=== PATIENT | male | born 1990 | race Caucasian/White ===

== ENCOUNTER 2019-02-12 18:19 | Emergency (ER) | payer BC ==
[~2019-02-12] VITALS: Ht 193 cm; Wt 68.0 kg
[2019-02-12 18:20] VITALS: BP 114/76
[2019-02-12] MEDS ORDERED: TETRACAINE 0.5% OPHTH SOLUTION 4ML BOTTLE. ONE (18:30)
[2019-02-12] MEDS ORDERED: FLUORESCEIN 1MG EYE STRIP. ONE (18:30)
[2019-02-12] MEDS ORDERED: FLUORESCEIN 1MG EYE STRIP. OD ONE (18:45)
[2019-02-12] MEDS ORDERED: TETRACAINE 0.5% OPHTH SOLUTION 4ML BOTTLE. OD ONE (18:45)
[2019-02-12] MEDS ORDERED: ERYT1OIN6 OP (19:23)
--- NOTE | 2019-02-12 19:23 | PHYS DOC ---
Past History Past Medical History: No Pertinent History Past Surgical History: No Surgical History Alcohol Use: Occasionally Drug Use: None Adult General Chief Complaint Chief Complaint: EYE PROBLEMS HPI HPI 28-year-old male presents with blurry vision. The patient started trouble with his vision around noon today. He wears contacts. He took his contact out and continues to feel it has blurry vision. He feels like there is a thicker fluid covering his eye. He denies any foreign body exposure. 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 Throughout the afternoon, the blurry vision did not improve pain began to have itching of the eye. He noticed that his conjunctivae is erythematous. He decided to come in for evaluation. Review of Systems Review of Systems Constitutional: Denies fever or chills [] Eyes: Blurry vision right eye with conjunctival erythema and itching. [] HENT: Denies nasal congestion or sore throat [] Respiratory: Denies cough or shortness of breath [] Cardiovascular: No additional information not addressed in HPI [] GI: Denies abdominal pain, nausea, vomiting, bloody stools or diarrhea [] : Denies dysuria or hematuria [] Musculoskeletal: Denies back pain or joint pain [] Integument: Denies rash or skin lesions [] Neurologic: Denies headache, focal weakness or sensory changes [] Endocrine: Denies polyuria or polydipsia [] All other systems were reviewed and found to be within normal limits, except as documented in this note. Current Medications Current Medications Current Medications Medications (Trade) Dose Ordered Sig/Kym Start Time Stop Time Status Last Admin Dose Admin Fluorescein Sodium (Ful-Asya 1mg) 1 strip 1X ONCE 02/12/19 18:45 02/12/19 18:46 DC 02/12/19 18:34 1 STRIP Tetracaine HCl (Tetracaine) 1 drop 1X ONCE 02/12/19 18:45 02/12/19 18:46 DC 02/12/19 18:35 1 DROP Allergies Allergies Allergies Coded Allergies Type Severity Reaction Last Updated Verified No Known Drug Allergies 02/12/19 No Physical Exam Physical Exam Constitutional: Well developed, well nourished, no acute distress, non-toxic appearance. [] HENT: Normocephalic, atraumatic, bilateral external ears normal, oropharynx moist, no oral exudates, nose normal. [] Eyes: PERRLA, EOMI, conjunctiva right eye erythematous, no discharge. Mullins lamp exam is negative for increased uptake or corneal abrasion.[] Neck: Normal range of motion, no tenderness, supple, no stridor. [] Cardiovascular:Heart rate regular rhythm, no murmur [] Lungs & Thorax: Bilateral breath sounds clear to auscultation [] Abdomen: Bowel sounds normal, soft, no tenderness, no masses, no pulsatile masses. [] Skin: Warm, dry, no erythema, no rash. [] Back: No tenderness, no CVA tenderness. [] Extremities: No tenderness, no cyanosis, no clubbing, ROM intact, no edema. [] Neurologic: Alert and oriented X 3, normal motor function, normal sensory function, no focal deficits noted. [] Psychologic: Affect normal, judgement normal, mood normal. [] Current Patient Data Vital Signs Vital Signs Date Time Temp Pulse Resp B/P (MAP) Pulse Ox O2 Delivery O2 Flow Rate FiO2 02/12/19 18:20 98.6 51 14 99 Room Air EKG EKG [] Radiology/Procedures Radiology/Procedures [] Course & Med Decision Making Course & Med Decision Making Pertinent Labs and Imaging studies reviewed. (See chart for details) The patient's contact use, symptoms, and history, I will treat this as bacterial conjunctivitis and erythromycin ointment. Advised to not wear his contacts. He will throw away the current contact. He is stable for discharge at this time. [] Dragon Disclaimer Dragon Disclaimer This electronic medical record was generated, in whole or in part, using a voice recognition dictation system. Departure Departure: Impression: Primary Impression: Bacterial conjunctivitis of right eye Disposition: HOME, SELF-CARE Condition: STABLE Referrals: PCP,NO (PCP) Patient Instructions: Conjunctivitis (Viral and Bacterial) Scripts Erythromycin Base (Erythromycin) 1 Gm Oint...g. 1 GM OP TID for bacterial conjunctivitis for 7 Days, #1 MISC Prov: ARJUN ALLEN DO 02/12/19 ARJUN ALLEN DO Feb 12, 2019 19:23
== END 2019-02-12 19:30 | disposition home or self-care (01) ==
LOC: ER 18:19
DX: H10.89 Other conjunctivitis (principal); B97.89 Other viral agents as the cause of diseases classified elsewhere
CPT/HCPCS: 99283